=== PATIENT | female | born 1960 | race Caucasian/White ===

== ENCOUNTER 2017-05-27 12:22 | Emergency (ER) | payer BC ==
[~2017-05-27] VITALS: Ht 172.7 cm; Wt 164.0 kg
[~2017-05-27 12:22] MED LIST: CHOLTAB3 PO; CYAN500T13 SL; FERREX PO; FEXO1TAB46 PO; FISHOIL PO; MULTTAB58 PO; [UNRECOGNIZED DRUG - OTHER] PO; zinc PO
--- NOTE | 2017-05-27 12:40 | EMERGENCY ROOM VISIT NOTE ---
History Report prepared by Adenike: Ernie Diaz Under the Supervision of: Dr. Perfecto Doherty D.O. First contact with patient: 12:25 Chief Complaint: PALPITATIONS Stated Complaint: HEART PALPITATIONS, VERTIGO, LIGHT HEADED History of Present Illness The patient is a 56 year old female diabetic who presents to the Emergency Room with complaints of persistent heart palpitations with walking that started around 9 hours ago. She states that she woke up 9 hours ago to use the bathroom , and when she was going to the bathroom, she noticed that her heart was racing. She states that the onset of the heart palpitations was at rest. The patient notes that she then sat on a chair, and fell back asleep. She says that she talked to a family member, who is a PA-C, and was recommended to come here for evaluation. However, when the patient started to get ready to come here, she began to get dizzy only when walking. The patient says that she gets short of breath when she gets dizzy. She notes that she feels fine laying in bed talking to me currently, and her symptoms do not come on when shaking her head. She adds that her heart racing only occurs with walking currently. The patient describes her dizziness as feeling like she will pass out. She denies any room spinning. She also denies any recent weight changes, chest pain, rectal bleeding , melena, hematochezia, or leg swelling. The patient notes a history of a hysterectomy. She checked her sugars after eating this morning and they were 205. Source of History: patient Onset: Around 9 hours ago Position: other (heart - palpitations) Quality: other (only comes on with walking now, initial onset was at rest) Timing: other (persistent) Modifying Factors (Worsening): other (walking) Associated Symptoms: + SOB, No chest pain, No melena, No hematochezia Note: Associated symptoms: Dizziness with walking. Denies recent weight changes, rectal bleeding, leg swelling. Review of Systems See HPI for pertinent positives & negatives. A total of 10 systems reviewed and were otherwise negative. Past Medical & Surgical Medical Problems: (1) Diabetes (2) Diabetes (3) No chronic problems Family History Cancer Heart disease Hypertension Social History Smoking Status: Never Smoker Alcohol Use: none Marital Status: Housing Status: lives with family Occupation Status: employed Current/Historical Medications Scheduled Bupropion Hcl (Wellbutrin Sr), 150 MG PO DAILY Cetirizine (Zyrtec), 10 MG PO DAILY Cyanocobalamin (Vitamin B12 500MCG), 500 MCG SL DAILY Ferrous Gluconate (Ferrous Gluconate), 324 MG PO DAILY Fexofenadine Hcl (Imelda), 180 MG PO DAILY Multiple Vitamin (Multivitamin), 1 TAB PO DAILY Omeprazole (Prilosec), 40 MG PO DAILY Allergies Coded Allergies: NSAIDs (Verified Adverse Reaction, Unknown, AVOID ORAL NSAIDS DUE TO GASTRIC BYPASS, 04/03/12) Physical Exam Vital Signs Date Time Temp Pulse Resp B/P (MAP) Pulse Ox O2 Delivery O2 Flow Rate FiO2 05/27/17 15:38 36.3 90 17 145/105 95 05/27/17 13:45 95 Room Air 05/27/17 13:44 73 17 145/85 96 Room Air 05/27/17 12:43 95 05/27/17 12:42 97 Room Air 05/27/17 12:27 96 Room Air 05/27/17 12:23 36.3 149 22 184/108 96 Room Air Physical Exam GENERAL: Patient is awake, alert, and in no acute distress. Patient is resting comfortably and showing no signs of anxiety EYES: The conjunctivae are clear. The pupils are round and reactive. EARS, NOSE, MOUTH AND THROAT: The nose is without any evidence of any deformity. Mucous membranes are moist tongue is midline NECK: The neck is nontender and supple. RESPIRATORY: Normal respiratory effort is noted there is no evidence of wheezing rhonchi or rales CARDIOVASCULAR: Regular rate and rhythm noted there no murmurs rubs or gallops normal S1 normal S2 GASTROINTESTINAL: The abdomen is soft. Bowel sounds are present in all quadrants. Abdomen is nontender PELVIS: The Pelvis is stable. No tenderness to palpation is noted. BACK: No midline tenderness or or step-off noted range of motion in flexion extension as well as rotation no signs of muscle spasm noted MUSCULOSKELETAL/EXTREMITIES: There is no evidence of gross deformity full range of motion is noted in the hips and shoulders SKIN: There is no obvious evidence of any rash. There are no petechiae, pallor or cyanosis noted. NEUROLOGIC: Patient is awake alert and oriented x3. Medical Decision & Procedures ER Provider Diagnostic Interpretation: X-ray results as stated below per interpretation by me and the radiologist. CHEST ONE VIEW PORTABLE CLINICAL HISTORY: EVALUATE RESPIRATORY DISTRESS.DYSPNEA dyspnea COMPARISON STUDY: No previous studies for comparison. FINDINGS: The bones soft tissues and hemidiaphragms are normal. The cardiomediastinal silhouette is normal. The lungs are clear. The pulmonary vasculature is normal. IMPRESSION: Negative chest. The above report was generated using voice recognition software. It may contain grammatical, syntax or spelling errors. Electronically signed by: Damien Mcgill M.D. 05/27/2017 12:53 PM Dictated Date/Time: 05/27/2017 12:53 PM Laboratory Results 05/27/17 12:45 Red Blood Count 4.97, Mean Corpuscular Volume 78.3, Mean Corpuscular Hemoglobin 24.5, Mean Corpuscular Hemoglobin Concent 31.4, Mean Platelet Volume 10.6, Neutrophils (%) (Auto) 62.1, Lymphocytes (%) (Auto) 25.7, Monocytes (%) (Auto) 9.2, Eosinophils (%) (Auto) 1.8, Basophils (%) (Auto) 0.6, Neutrophils # (Auto) 4.38, Lymphocytes # (Auto) 1.81, Monocytes # (Auto) 0.65, Eosinophils # (Auto) 0.13, Basophils # (Auto) 0.04 05/27/17 12:45 Test 05/27/17 12:45 05/27/17 14:06 White Blood Count 7.05 K/uL (4.8-10.8) Red Blood Count 4.97 M/uL (4.2-5.4) Hemoglobin 12.2 g/dL (12.0-16.0) Hematocrit 38.9 % (37-47) Mean Corpuscular Volume 78.3 fL (80-100) Mean Corpuscular Hemoglobin 24.5 pg (25-34) Mean Corpuscular Hemoglobin Concent 31.4 g/dl (32-36) Platelet Count 226 K/uL (130-400) Mean Platelet Volume 10.6 fL (7.4-10.4) Neutrophils (%) (Auto) 62.1 % Lymphocytes (%) (Auto) 25.7 % Monocytes (%) (Auto) 9.2 % Eosinophils (%) (Auto) 1.8 % Basophils (%) (Auto) 0.6 % Neutrophils # (Auto) 4.38 K/uL (1.4-6.5) Lymphocytes # (Auto) 1.81 K/uL (1.2-3.4) Monocytes # (Auto) 0.65 K/uL (0.11-0.59) Eosinophils # (Auto) 0.13 K/uL (0-0.5) Basophils # (Auto) 0.04 K/uL (0-0.2) RDW Standard Deviation 45.6 fL (36.4-46.3) RDW Coefficient of Variation 16.0 % (11.5-14.5) Immature Granulocyte % (Auto) 0.6 % Immature Granulocyte # (Auto) 0.04 K/uL (0.00-0.02) Prothrombin Time 10.4 SECONDS (9.0-12.0) Prothromb Time International Ratio 1.0 (0.9-1.1) Activated Partial Thromboplast Time 25.1 SECONDS (21.0-31.0) Partial Thromboplastin Ratio 1.0 D-Dimer 370 ug/L FEU (0-500) Anion Gap 7.0 mmol/L (3-11) Est Creatinine Clear Calc Drug Dose 130.6 ml/min Estimated GFR () 97.8 Estimated GFR (Non- 84.4 BUN/Creatinine Ratio 15.0 (10-20) Calcium Level 8.7 mg/dl (8.5-10.1) Magnesium Level 2.1 mg/dl (1.8-2.4) Total Bilirubin 0.3 mg/dl (0.2-1) Aspartate Amino Transf (AST/SGOT) 23 U/L (15-37) Alanine Aminotransferase (ALT/SGPT) 29 U/L (12-78) Alkaline Phosphatase 92 U/L (45-117) Troponin I < 0.015 ng/ml (0-0.045) Total Protein 7.5 gm/dl (6.4-8.2) Albumin 3.5 gm/dl (3.4-5.0) Globulin 4.0 gm/dl (2.5-4.0) Albumin/Globulin Ratio 0.9 (0.9-2) Thyroid Stimulating Hormone (TSH) 1.910 uIu/ml (0.300-4.500) Free Thyroxine 0.98 ng/dl (0.80-1.60) Urine Color DK YELLOW Urine Appearance CLEAR (CLEAR) Urine pH 6.5 (4.5-7.5) Urine Specific [place] 1.024 (1.000-1.030) Urine Protein 1+ (NEG) Urine Glucose (UA) NEG (NEG) Urine Ketones NEG (NEG) Urine Occult Blood NEG (NEG) Urine Nitrite NEG (NEG) Urine Bilirubin NEG (NEG) Urine Urobilinogen NEG (NEG) Urine Leukocyte Esterase NEG (NEG) Urine WBC (Auto) 1-5 /hpf (0-5) Urine RBC (Auto) 0-4 /hpf (0-4) Urine Hyaline Casts (Auto) 1-5 /lpf (0-5) Urine Epithelial Cells (Auto) >30 /lpf (0-5) Urine Bacteria (Auto) 1+ (NEG) Urine Crystals CALCIUM OXALATE (NONE Urine Mucus PRESENT (NONE PRSENT) Laboratory results per my review. ECG Indication: palpitations Rate (beats per minute): 93 Rhythm: normal sinus Findings: no ectopy, other (no acute ST segment abnormalities) Change: no significant change (from 03/21/12) ED Course 1229: The patient was evaluated in room B7. A complete history and physical examination were performed. 1400: Upon reevaluation, the patient is resting comfortably. 1439: Upon reevaluation, the patient is doing well. I discussed the results and treatment plan with her. She verbalized agreement of the treatment plan. She was discharged home. Medical Decision Differential diagnosis: Etiologies such as premature contractions, electrolyte abnormality, cardiac dysrhythmia, thyroid dysfunction, pulmonary embolism, infection, gastrointestinal, as well as others were entertained. Nursing notes reviewed. The patient is a 56-year-old female who presented to the emergency department for an evaluation of palpitations. The patient states that she developed palpitations and a very fast heart rate. She also had symptoms of dizziness. The patient's EKG did not show any acute changes From previous. Her cardiac biomarkers were negative. The patient was noted to have tachycardia in triage however by the time she got back to room she was normal sinus rhythm. I discussed the patient's laboratory and radiographic studies with her. I also discussed my concerns that she may have an underlying cardiac dysrhythmia. I discussed her case with the emergency department major case detective. We will try to set the patient up with a cardiac appointment or with her primary care physician for further cardiac evaluation. She was also encouraged to rest and avoid any strenuous activity as well as avoid caffeinated beverages. She was also encouraged to return to the emergency department immediately symptoms change worsen or the need arises. She was also encouraged not to drive until she was cleared from a cardiac standpoint. Medication Reconcilliation Current Medication List: was personally reviewed by me Blood Pressure Screening Patient's blood pressure: Elevated blood pressure Blood pressure disposition: Elevated BP felt to be situational Impression Primary Impression: Palpitations Additional Impression: Tachycardia Scribe Attestation The scribe's documentation has been prepared under my direction and personally reviewed by me in its entirety. I confirm that the note above accurately reflects all work, treatment, procedures, and medical decision making performed by me. Departure Information Dispostion Home / Self-Care Referrals No Doctor, Assigned (PCP) Consuelo BeePCarson Forms HOME CARE DOCUMENTATION FORM, IMPORTANT VISIT INFORMATION, WORK / SCHOOL INSTRUCTIONS Patient Instructions ED Palpitations, ED Valsalva Maneuver, My [facility] Additional Instructions Call your primary care physician to schedule a follow-up appointment. Rest and avoid any strenuous activity. Drink plenty clear liquids. Avoid caffeinated beverages. Return to the emergency apartment immediately if symptoms change worsen or the need arises. Problem Qualifiers
[2017-05-27 12:44] VITALS: Ht 172.7 cm; Wt 164.0 kg
--- NOTE | 2017-05-27 12:54 | DIAGNOSTIC IMAGING REPORT ---
CHEST ONE VIEW PORTABLE CLINICAL HISTORY: EVALUATE RESPIRATORY DISTRESS.DYSPNEA dyspnea COMPARISON STUDY: No previous studies for comparison. FINDINGS: The bones soft tissues and hemidiaphragms are normal. The cardiomediastinal silhouette is normal. The lungs are clear. The pulmonary vasculature is normal. IMPRESSION: Negative chest. The above report was generated using voice recognition software. It may contain grammatical, syntax or spelling errors. Electronically signed by: Damien Mcgill M.D. 05/27/2017 12:53 PM Dictated Date/Time: 05/27/2017 12:53 PM
[2017-05-27 13:01] LABS: BASO % 0.6 %; BASO ABS # 0.04 K/uL (0-0.2); EOS % 1.8 %; EOS ABS # 0.13 K/uL (0-0.5); HEMATOCRIT 38.9 % (37-47); HEMOGLOBIN 12.2 g/dL (12.0-16.0); IG# 0.04 K/uL (0.00-0.02); LYMPH % 25.7 %; LYMPH ABS # 1.81 K/uL (1.2-3.4); MEAN CELL VOLUME 78.3 fL (80-100); MEAN CORPUSCULAR HEMOGLOBIN 24.5 pg (25-34); MEAN CORPUSCULAR HGB CONC 31.4 g/dl (32-36); MEAN PLATELET VOLUME 10.6 fL (7.4-10.4); MONO % 9.2 %; MONO ABS # 0.65 K/uL (0.11-0.59); NEUT % 62.1 %; NEUT ABS # 4.38 K/uL (1.4-6.5); PLATELET COUNT 226 K/uL (130-400); RED CELL DISTRIBUTION WIDTH SD 45.6 fL (36.4-46.3); WHITE BLOOD COUNT 7.05 K/uL (4.8-10.8)
[2017-05-27] MEDS ORDERED: FERR325T18 PO (13:10)
[2017-05-27] MEDS ORDERED: CETI10TA84 PO (13:10)
[2017-05-27] MEDS ORDERED: OMEP40CA41 PO (13:10)
[2017-05-27] MEDS ORDERED: BUPR100T8 PO (13:10)
[2017-05-27 13:12] LABS: PTT PATIENT 25.1 SECONDS (21.0-31.0)
[2017-05-27 13:19] LABS: ALBUMIN 3.5 gm/dl (3.4-5.0); ALT/SGPT 29 U/L (12-78); BLOOD UREA NITROGEN 12 mg/dl (7-18); CALCIUM 8.7 mg/dl (8.5-10.1); CARBON DIOXIDE 29 mmol/L (21-32); CREATININE 0.78 mg/dl (0.60-1.20); GLUCOSE 204 mg/dl (70-99); POTASSIUM 3.6 mmol/L (3.5-5.1); SODIUM 140 mmol/L (136-145)
[2017-05-27] MEDS ORDERED: WLLSR/150 PO (13:27)
[2017-05-27 13:30] LABS: ALKALINE PHOSPHATASE 92 U/L (45-117); AST/SGOT 23 U/L (15-37); TOTAL PROTEIN 7.5 gm/dl (6.4-8.2)
[2017-05-27 13:45] VITALS: O2SAT 95
[2017-05-27 15:38] VITALS: BP 145/105; PULSE 90; TEMP 36.3; O2SAT 95
== END 2017-05-27 15:43 | disposition home or self-care (01) ==
LOC: C.EDB 12:23
DX: R00.2 Palpitations (principal); R00.0 Tachycardia, unspecified; Z83.3 Family history of diabetes mellitus; Z80.9 Family history of malignant neoplasm, unspecified; Z82.49 Family history of ischemic heart disease and other diseases of the circulatory system; Z79.899 Other long term (current) drug therapy

== ENCOUNTER → 2017-08-30 | Outpatient (CLI) | payer OTHER ==
[~2017-08-30] VITALS: Ht 174 cm; Wt 163.2 kg
[~2017-08-30] MED LIST changes: +CETI10TA84 PO; -CHOLTAB3 PO; +FERR325T18 PO; -FERREX PO; -FISHOIL PO; +OMEP40CA41 PO; +WLLSR/150 PO; -[UNRECOGNIZED DRUG - OTHER] PO; -zinc PO
[2017-08-30 10:25] VITALS: BP 142/70; PULSE 58; Ht 174 cm; Wt 163.2 kg
== END | disposition home or self-care (01) ==
LOC: C.NEUR 09:55
PROVIDERS: ATTEND Internal Medicine Pulmonary Disease
DX: G47.33 Obstructive sleep apnea (adult) (pediatric) (principal); I48.91 Unspecified atrial fibrillation

== ENCOUNTER → 2017-09-17 | Outpatient (CLI) | payer OTHER ==
--- NOTE | 2017-09-18 06:04 | PAP/PSG TECHNICIAN REPORT ---
[facility] Monorail Operator Polysomnogram Report Study name: None Report date: 09/18/2017 Study date: 09/17/2017 Referring Physician: Dr. Abdon Abraham DO Name: CARMEN POOL Interpreting Physician: Abdon Abraham D.O. Date of : 1960 Monorail Operator: LINDY Tomas. Sex: Female Age: 57 StudyType: PSG Weight: 359.8 lbs Height: 57 years, Height Neck Circum: 16 inches BMI: Medications: Bupropion 75 mg, Cyanocobalamin 500 mg, Loratadine 10, Multi Vitamin, nutrisource fiber, Metoprolol 50 mg, Omeprazole 20 mg, Vitamin C 500 mg, Vitamin D 3 2000 units, Xarelto 20 mg Patient History 57 yr. old female here for a modified split night sleep study if AHI is >15. Patient has a history of atrial fibrillation, obesity and nocturnal hypoxia. She was hospitalized in June and was found to have low oximetry at night. ESS 02/18. Parameters Monitored NPSG: E1-M2, E2-M1, Fp1-M2, Fp2-M1, F3-M2, F4-M2, F4-M1, C3-M2, C4-M2, C4-M1, O1-M2, O2-M2, O2-M1, T3-M2, T4-M1, P3-M2, P4-M1, CHIN1, CHIN2, HR, EKG, Legs, PFLOW, SNOR, FLOW, CFLOW, Tidal Volume, THOR, ABDO, SpO2, PLTH, CPRESS, ETCO2 Wave, ETCO2, pH Sleep Architecture Sleep Stages Time at Lights Off 10:29:40 PM STAGES Time (min.) TST (%) Time at Lights On 5:40:40 AM Wake 67.5 -- Total Recording Time (TRT) 430.50 min. N1 40.0 11 Total Sleep Period (TSP) 420.0 min. N2 233.0 64 Total Sleep Time (TST) 363.0min. N3 43.0 12 Awake Time 67.5 min. REM 47.0 13 Wake after Sleep Onset 66.0 min. Sleep Efficiency (SE) 84 % Sleep Onset Latency (MICKEY) 2.0 min. Number of Stage 1 Shifts None Awakenings 36 Stage Changes 143 Number of REM periods 4 REM 47.0 13 REM Latency 71.5 min. NREM 316.0 87 Body Position Analysis Supine Right Left Side Prone Vertical Total Sleep Time (min.) 156.6 135.9 85.0 220.92 0.0 25.2 Total Sleep Time (%) 34% 37% 23% 61 0% 100% Total Sleep Time REM (min.) 32.0 0.0 15.0 None 0.0 0.0 Total Sleep Time NREM (min.) 90.6 135.9 70.0 None 0.0 19.5 Intermittent Wake (min.) 34.0 18.8 9.0 None 0.0 5.7 Total Sleep Period (%) 37% None None None None None Arousals Myoclonus (PLM) * Events Count Index Events Count Index Spontaneous 20 3 Events Awake (PLMW) 52 46.2 Respiratory 31 5.0 Events Asleep w/ Arousal (PLMA) 11 1.8 PLM 11 2 Events Asleep w/o Arousal (PLMS) 59 9.8 Snoring 21 3 Total Asleep 70 11.6 Total 83 14 Total 122 17 Respiratory Analysis * CA OA MA CH H RERA Total Count 0 17 0 0 112 1 129 Index 0.0 2.8 0.0 0 18.5 0 21.5 Mean Duration 0.0 19.1 0.0 0.00 24.1 33.7 23.5 Longest Duration 0.0 41.5 0.0 0.00 0.0 33.7 56.5 Respiratory Event Summary Total Supine ~Supine Right Left Prone REM NREM Apneas Count 17 15 2 2 0 N/A 0 17 Index 2.8 7 0 0.9 0.0 N/A 0 3 Hypopneas (4% Desat) Count 112 56 56 25 31 N/A 22 90 Index 18.5 27.4 14 11.0 21.9 N/A 28.1 17.1 Apneas & All Hypopneas Count 129 71 58 27 31 N/A 22 107 Index 21.3 35 14 12 22 N/A 28.1 20.3 Respiratory Events (Wheel Blocker+All Hyp+RERA) Count 129 72 58 27 31 N/A 22 107 Index 21.5 35 14 11.9 21.9 N/A 29.4 20.3 Respiratory Related Arousal Count 31 72 6 6 0 N/A 2 28 Index 5.0 12 1 3 0 N/A 3 5 Snoring Analysis Supine Right Left Prone REM NREM Total Snore duration 11.6 min Snores count 175 49 28 N/A 15 401 416 Snore mean duration 1.7 Sec Snores index 86 22 20 N/A 19.1 76.1 68.8 TST with snoring (%) 3.2% SpO2 Analysis Total REM NREM Awake <50% 0.0 min. 0.0 min. 0.0 min. 0.0 min. 51 - 60% 0.0 min. 0.0 min. 0.0 min. 0.0 min. 61 - 70% 0.2 min. 0.0 min. 0.0 min. 0.2 min. 71 - 80% 3.4 min. 2.2 min. 0.5 min. 0.7 min. 81 - 90% 274.2 min. 42.4 min. 213.7 min. 18.2 min. 91 - 100% 136.8 min. 2.3 min. 99.8 min. 34.7 min. Average 89 86 89 91 Minimum SpO2 64 76 77 64 Desaturation Event Index 25.1 20.4 23.4 37.3 # Desat. Events below 89% 150 16 108 26 Time(%) with Saturation below 89% 35.8 9.9 23.5 2.4 Time(min.) with Saturation below 89% 148.4 41.1 97.4 9.9 Heart Rate Analysis End Tidal CO2 Analysis Min (bpm) Max (bpm) Average (bpm) TSP (mins) % of TSP Awake 30 127 58 Above 55 mmHg 0.0 0.0 NREM 51 127 56 50-55 mmHg 0.0 0.0 REM 47 73 57 45-50 mmHg 3.4 0.9 Overall 47 127 56 40-45 mmHg 164.4 45.3 35-40 mmHg 103.7 28.6 30-35 mmHg 47.5 13.1 Average ETCO2 0.2 Supplemental O2 Values Minimum O2 level: None Value Start Time End Time Monorail Operator Comments Mrs. Pool qualified for a split night sleep study at 1:32 am. Mrs. Pool could not tolerate a mask being over her nose and mouth ( she is strictly a mouth breather and slept that way throughout the study). A mask was picked before lights out and she was having difficulty putting the mask to her face due to claustrophobia. Several attempts were made and she decided to finish the study as a diagnostic study. Mrs. Pool slept in the right, left, and supine and prone positions. No cardiac arrhythmia. PLMs noted. No bruxism noted. Snoring was noted and scored as a 2 on a scale of 0 through 5. (0=no snoring, 5=snoring loud enough to be heard through a closed door or down the [address] way) Mrs. Pool awoke to use the restroom once during the night. Mrs. Pool stated, I did not sleep well. The final report will be interpreted and signed by a sleep physician. The completed physician report will then be placed in the patient medical record. Therapy (cm H2O) 0 TIB (min.) 430.5 TST (min.) 363.0 Sleep Onset (min.) 2.0 REM Onset From Sleep (min.) 71.5 Sleep Efficiency % 84 Wakefulness (%) 16 Wakefulness (min.) 67.5 NREM 1 (%) 11 NREM 1 (min.) 40.0 NREM 2 (%) 64 NREM 2 (min.) 233.0 NREM 3 (%) 12 NREM 3 (min.) 43.0 REM (%) 13 REM (min.) 47.0 # Arousals 83 Arousal Index 14 # Snore 416 Snore Index 68.8 AHI 21.3 AHI Supine 35 AHI Non-Supine 14 NREM AHI 20.3 REM AHI 28.1 RDI 21.5 # Obstructive Apnea 17 # Central Apnea 0 # Mixed Apnea 0 # Hypopneas 112 RERAs 1 Total Respiratory Events 147 Time Below SpO2 89% (min.) 138.5 Mean NREM SpO2 (%) 89 Mean REM SpO2 (%) 86 Mean Sleep SpO2 (%) 89 Min NREM SpO2 (%) 77 Min REM SpO2 (%) 76 Position Supine (min.) 156.6 Position Non-supine (min.) 240.4 LM Index Sleep 11.6 LM Index NREM 12.0 LM Index REM 8.9 Mean Heart Rate (bpm) 56 Min Heart Rate (bpm) 47
--- NOTE | 2017-09-21 17:31 | POLYSOMNOGRAPH REPORT ---
Sleep study report. CLINICAL DATA: The patient is a 57-year-old female who has a history of atrial fibrillation. She was hospitalized in June of this year and found to have nocturnal hypoxia as well. She snores, but she states it is only when she is sitting up. She completed the [place] sleepiness scale and had a score of 9 out of a possible 24. SLEEP ARCHITECTURE: The total sleep period was 420 minutes. The total sleep time was 363 minutes. The sleep efficiency was mildly reduced to 84%. The sleep latency was normal at 2 minutes. Wake after sleep onset was mildly increased to 66 minutes. The REM latency was normal at 71.5 minutes. There were 3 REM periods during the night. They were all relatively short. Sleep consisted of stage N1 11%, stage N2 64%, stage N3 12%, stage REM 13%. AROUSAL DATA: The patient had a total of 83 arousals including 20 spontaneous arousals, 31 respiratory arousals, 11 PLM arousals, and 21 snoring arousals. The arousal index was 14. PLM DATA: The patient had a total of 70 periodic limb movements of sleep for a PLM index of 11.6. There were 11 arousals associated with limb movements for a PLM arousal index of 1.8. EKG: The minimum cardiac rate was 47 beats per minute. The average heart rate was 56 beats per minute. No arrhythmia was noted. RESPIRATORY DATA: The patient had a total of 129 respiratory events including 17 obstructive apneas and 112 hypopneas. Hypopneas were scored according to the 4% desaturation rule. There was also 1 RERA. The longest apnea was 41.5 seconds. The mean duration of the hypopneas was 24.1 seconds. The apnea hypopnea index was 21.3 events per hour. This reflects moderate obstructive sleep apnea. OXIMETRY DATA: The average saturation for the night was 89%. The lowest recorded saturation was 64%, but it clearly seems to be artifact. It is likely that the lowest true saturation would be 78%. She did have a total of 148.4 minutes with saturations less than 89%. ENVIRONMENTAL CONFLICT MANAGER COMMENTS: The patient qualified for a split night study at 1:32 a.m. Mrs. Pool could not tolerate the mask being over her nose and mouth and she is strictly a mouth breather. A mask was picked before lights out and she was having difficulty putting the mask to her face due to claustrophobia. Several attempts were made and she decided to finish the study as a diagnostic study. She slept in the right, left, supine, and prone positions. No cardiac arrhythmia. PLMs noted. No bruxism noted. Snoring was noted and scored as a 2 on a scale of 0 through 5. The patient awakened to use the restroom 1 time during the night. She indicated she did not sleep well. IMPRESSION: Moderate obstructive sleep apnea. COMMENTS: This study reflects moderate apnea as noted above. There were at times significant oxygen desaturations. Most of these occurred when she had events in REM sleep. There was a greater frequency of events in REM with an apnea hypopnea index of 28.1. When supine, her apnea hypopnea index was elevated at 35. The patient was extremely claustrophobic. RECOMMENDATIONS: 1. It would be advised that the patient be given a trial of nasal CPAP. Perhaps she could tolerate an auto CPAP with relatively low settings. Perhaps she could try a nasal mask even with a chinstrap and see if that might help her to wear the CPAP. 2. Weight loss is advised. The patient has a severe elevation of body mass index. 3. It is suggested that she avoid sleeping in the supine position. 4. If the patient refuses nasal CPAP, she could be considered a candidate for nocturnal oxygen therapy. If indeed she does not have oxygen at home, this would need to be reevaluated with an overnight pulse oximetry to qualify. A sleep study in and of itself does not qualify for home oxygen.
== END | disposition home or self-care (01) ==
LOC: C.NEUR 21:00
PROVIDERS: ATTEND Internal Medicine Pulmonary Disease
DX: G47.33 Obstructive sleep apnea (adult) (pediatric) (principal)